=== PATIENT | male | born 1955 | race Caucasian/White ===

== ENCOUNTER → 2020-08-27 | Outpatient (CLI) | payer MEDICARE ==
[2020-08-27 08:45] VITALS: BP 126/86; PULSE 86; RESP 18; TEMP 98.4
--- NOTE | 2020-08-27 09:02 | P.PAINCN ---
History of Present Illness - Reason for Consult Consult date: 08/27/20 - Chief Complaint back pain - History of Present Illness Sergo is a 65-year-old gentleman who presents as a new patient consult. He had been seen [facility] previously for many years regarding his low back pain. He describes back pain across the low back mostly over the waistline and the top of the lumbar spine. He finds pain is an aching sensation is worse with standing and bending over. Pain is worse with extension of the lumbar spine. There are no shooting pains down the leg. There is no weakness noted in his legs. No numbness or tingling. He denies any bowel or bladder incontinence. He denies any significant upper back or neck pain. Has been treated with multiple radiofrequency ablations of the lumbar spine between L2 through L5 at [facility]. He reports that the radiofrequency ablation has offered him greater than 70-80% relief for almost 12 months at a time. He last had the procedure done in January 2020. Dr. Moraes's no longer there so they referred him over here to establish care. In the past she's had bilateral lumbar radiofrequency ablation at L2-3 L3 4 and L4-L5. He had the procedure done under sedation. Review of Systems: Denies any New chest pain, short of breath, Nausea/vomitting, abdominal pain, bowel or bladder incontinence, or any overt new neurologic symptoms in the upper or lower extremities outside of what is noted in the HPI Past Medical History Past Medical History: Hypertension Additional Past Medical History / Comment(s): full thickness grover legs with scars History of Any Multi-Drug Resistant Organisms: None Reported Additional Past Surgical History / Comment(s): rhizotomy lumbar spine. skin grafts cal legs Past Anesthesia/Blood Transfusion Reactions: No Reported Reaction Past Psychological History: No Psychological Hx Reported Smoking Status: Former smoker Past Alcohol Use History: Rare Additional Past Alcohol Use History / Comment(s): quit 2016 Past Drug Use History: None Reported - Past Family History Mother Family Medical History: Cancer Father Family Medical History: Cancer Medications and Allergies Home Medications Medication Instructions Recorded Confirmed Type Benazepril HCl 40 mg PO DAILY 08/26/20 08/27/20 History Ibuprofen [Motrin] 800 mg PO Q8H PRN 08/26/20 08/27/20 History Allergies Allergy/AdvReac Type Severity Reaction Status Date / Time No Known Allergies Allergy Verified 08/26/20 15:43 Physical Exam Vitals: Intake and Output 08/26/20 08/27/20 08/27/20 22:59 06:59 14:59 Other: Weight 90.718 kg General: Awake and alert oriented 3 no distress Respiratory exam: No audible wheezing no accessory muscle usage Cardiovascular exam: regular rate, palpable bilateral pulses, no lower extremity edema Abdominal exam: No distention nontender to palpation Cervical spine: Normal alignment, Spurling's negative, facet loading negative, [employer] strength is 5/5, issa negative Thoracic Spine: Alignment is midline. Forward flexed body position, increased thoracic kyphosis Lumbar spine: Loss of lumbar lordosis with atrophy of the paraspinal and gluteal muscles, normal alignment, tender to palpation over bilateral paraspinal muscles, facet loading is positive bilaterally. Straight leg raise is negative. Limited range of motion due to pain with flexion, extension and side bending. Sacroiliac joints: Nontender to palpation, OSMANY is negative, Gaenselon negative Neuro exam: Normal sensation in bilateral upper extremities, deep tendon reflexes are 2+ bilateral upper extremities. Normal sensation in bilateral lower extremities. Deep tendon reflexes are 2+ in lower extremities Psych exam: Cooperative, appropriate mood Results Results: According to the notes from [facility] dated 12/18/2019. MRI dated 03/19/2015 details a right foraminal disc protrusion L5-S1 mildly compressing the exiting L5 nerve root. There is mild multifactorial central stenosis at L4-L5. Spondylosis at multiple levels of the lumbar spine are noted. No high-grade stenosis noted on the report. There is an old compression fracture L1. Assessment and Plan Assessment: Lumbar spondylosis without myelopathy Plan: I discussed the findings with Sergo, I reviewed the records from [facility] which she has brought in. I placed those records in his paper chart. I have offered to take over his care of performing bilateral lumbar radiofrequency ablations from L2-L3, L3-L4, L4-L5. I've expect him that Medicare guidelines and recently change and we may not be able to do all 3 levels that one time. The options are to do one level at a time, and or do 2 levels bilaterally. We'll attempt to get authorization for bilateral 3 levels if possible. I've explained this to the patient in detail. No medications were dispensed today. The patient will give us a call when he is ready to have the procedure moving forward. I have spent 39 minutes on patient care today. The time was used to review the medical records including relevant urine studies and Prescription history (MAPs), review of the available imaging, evaluation and examination of the patient, coordination of care with the medical staff and if applicable referring physicians, as well as creation of the medical record. Maps were checked PQRS Measure Charge Sheet PQRS Narrative: Pain Intensity [Lower Back] 6 Scale Used Numeric (1 - 10) Hx Alcohol Use (MH) Yes Home Medications: Ambulatory Orders Benazepril HCl 40 mg PO DAILY 08/26/20 Ibuprofen [Motrin] 800 mg PO Q8H PRN 08/26/20
== END ==
LOC: PNWHC3 08:30
PROVIDERS: ATTEND Hospitalist
DX: M47.816 Spondylosis without myelopathy or radiculopathy, lumbar region (principal); I10 Essential (primary) hypertension; Z87.891 Personal history of nicotine dependence
CPT/HCPCS: 99202

== ENCOUNTER → 2020-10-15 | Outpatient (CLI) | payer MEDICARE ==
[2020-10-15 08:12] VITALS: BP 131/80; PULSE 78; RESP 18; TEMP 98.3
--- NOTE | 2020-10-15 08:22 | P.PN ---
Subjective Progress Note Date: 10/15/20 This is a follow-up visit for this 65 years old male with a chronic history of severe low back pain, came in today as he has multiple questions regarding his procedure , patient supposed to have RFA of the medial branch lumbar area and he is scheduled to have 3 level medial Branch laterally, he is concerned that he used to 4 leveles RFA medial branches bilaterally ( done previously at [facility] ) patient denies any fever or night sweats he denies any motor or sensory deficit, his pain excelling in nature and he had multiple interventions done past, and the only procedure helped his back pain was RFA of the medial branch lumbar area Objective - Vital Signs Vital signs: Vital Signs Temp 98.3 F 10/15/20 08:08 Pulse 78 10/15/20 08:08 Resp 18 10/15/20 08:08 BP 131/80 10/15/20 08:08 Pulse Ox 95 10/15/20 08:08 Intake & Output 10/14/20 10/15/20 10/15/20 18:59 06:59 18:59 Weight 90.71 kg - Exam Physical Examinations : -Constitutiona : Cooperative , not in acute distress . -HEENT : nech : supple , no Lymphadenopathy , normal thyroid size . : eyes : no ptosis , no icterus, no photophobia . - neurologic : Cranial nerve II to XII intact , no focal neurological deffecit . -psychatric : alert , oriented X 3 , appropriate affect , intact judgment and insight . -Lymphatic : no Lymphadenopathy . - musculoskeltal : Lumber spine moter stegnth lower extremities ,thigh and legs 5/5 Right side , 5/5 Left side deep tendon reflexes : normal Knee Jerk , normal ankle Jerk lumber facet Loading Test =positive Right , positive Left Range of motion of the lumbar spine Flexion 30 degrees, extension 10 degrees strait leg raising test = negative Fabere test= negative . Sever tenderness over the Sacroiliac joint on the Right , and Left sides Multiple trigger point in the lumbar paraspinal muscles. MRI dated 03/19/2015 details a right foraminal disc protrusion L5-S1 mildly compressing the exiting L5 nerve root. There is mild multifactorial central stenosis at L4-L5. Spondylosis at multiple levels of the lumbar spine are noted. No high-grade stenosis noted on the report. There is an old compression fracture L1. Assessment and Plan Plan: Assessment and plan=1-lumbar spondylosis with lumbar facet arthropathy. 2-lumbar degenerative disc disease. 3-compression fracture lumbar spine (old ) he could benefit from repeate RFA medial branch lumbar area at L3, L4 , L5 bilaterally (insurance will not approve to do 4 levels bilaterally) Time with Patient: Less than 30
== END ==
LOC: PNWHC3 07:42
PROVIDERS: ATTEND Specialist
DX: M47.816 Spondylosis without myelopathy or radiculopathy, lumbar region (principal); M51.36 Other intervertebral disc degeneration, lumbar region; Z87.81 Personal history of (healed) traumatic fracture
CPT/HCPCS: 99211

== ENCOUNTER 2020-12-19 05:58 | Day surgery (SDC) | payer MEDICARE ==
[2020-12-16 10:30] VITALS: BMI 29.5
[~2020-12-19 05:58] MED LIST: LACTATED RINGERS 1,000 ML IV SCH
[2020-12-19 06:42] VITALS: TEMP 97.7
[2020-12-19] MEDS ORDERED: ROPIVACAINE 5MG/ML 20ML VIAL ONE (07:02)
[2020-12-19] MEDS ORDERED: methylPREDNISolone ACETATE 40 MG/ML 1 ML VIAL ONE (07:02)
[2020-12-19] MEDS ORDERED: fentaNYL (PF) 50 MCG/ML 2 ML AMP ONE (07:03)
[2020-12-19] MEDS ORDERED: MIDAZOLAM 2 MG/2 ML VIAL ONE (07:03)
[2020-12-19] MEDS ORDERED: LACTATED RINGERS 1,000 ML IV ONE ×2 (07:29)
--- NOTE | 2020-12-19 07:43 | P.PCN ---
Date of Procedure: 12/19/20 Procedure(s) Performed: PREOPERATIVE DIAGNOSIS: 1-Lumbar Spondylosis with Facet Arthropathy without myelopathy. 2- Lumber degenerative disc disease. POSTOPERATIVE DIAGNOSIS: 1- Lumbar Spondylosis with Facet Arthropathy without myelopathy. 2- Lumber degenerative disc disease. PROCEDURES : Bilateral Radiofrequency thermocoagulation, L3 , L4 , and L5 medial branch, with fluoroscopic guidance (fluoroscopy images available in the radiology department) ( to denervate the facet joint at L4-5 ,and L5-S1 levels ). ANESTHESIA: Monitered Anesthesia care, as per anesthesia department. EBL: Minimal PROCEDURE INDICATION: The patient with low back pain secondary to lumbar facet arthropathy who had more than 50% relief of her pain with previous diagnostic lumbar medial branch block with bupivacaine. PROCEDURE DESCRIPTION / TECHNIQUE: The patient was seen and identified in the preoperative area. Risks, benefits, complications, including but not limited to risk of infection ,bleeding , allergic reactions to the medications and no complete pain releife , and alternatives were discussed with the patient, the patient agreed to proceed with the procedure and signed the consent. IV was started. Vital signs remained stable throughout the procedure. Patient was taken to the OR and time out was completed. The patient was placed in the prone position on the procedure table. The lumber area was prepped and draped in the usual sterile fashion. . Vital signs were closely monitored during the procedure .IV sedation was used during the procedure to decrease patients anxiety. Using AP and then oblique fluoroscopy, the ``eye of the Viktor dog corresponding to the connection between the superior and transverse articular processes of right L3, L4, and L5 were identified, marked, and localized with 1% lidocaine. Subsequently, a 18 [id number] radiofrequency cannula with a 10- mm active tip was advanced guided by fluoroscopy to each of the``eyes of the Viktor dog at right L3, L4, and L5. Each site then underwent sensory testing at 50 Hz and 0 to 1 volt and motor testing at 2.5 Hz and 0 to 3 volt with local stimulation, but no radicular symptoms down the legs. Thereafter each sites underwent radiofrequency thermocoagulation at 80 degrees celsius for 90 seconds after injecting 0.5 ml of PF Ropivacaine 1ml, then after the thermocoagulation done , 1 ml of the block solution containing Depo-Medrol 20 mg and 3 ml of Ropivacaine 0.5% was injected at the right L3 , L4 , and L5 , levels after negative aspiration of CSF and blood and with no paresthesias. Cannulas were retracted while injecting lidocaine 1% until the needle is out. The same procedure was repeated at the level of Left L3, L4, and L5 levels. At the end of the procedure, the skin was cleansed and bandages were applied. COMPLICATIONS: No acute complications. DISPOSITION / PLANS: The patient was placed in a supine position and transferred to the recovery area in a stable condition for observation and was discharged from the recovery room after meeting discharge criteria. Home discharge instructions given to the patient by the staff. The patient was reexamined prior to discharge. The patient will schedule a follow up in the clinic in 2-4 weeks.
[2020-12-19 07:47] VITALS: RESP 16
[2020-12-19 08:01] VITALS: BP 139/88; PULSE 82
[2020-12-19] MEDS ORDERED: IV FLUID CONTINUATION 650 ML IV ONE (08:15)
--- NOTE | 2020-12-19 08:58 | FL ---
Fluoroscopy HISTORY: Pain 18 seconds fluoroscopy time supplied to the referring clinician. 7 intraoperative C-arm images docum ent the procedure. See dictated report from anesthesia.
== END 2020-12-19 08:19 | disposition home or self-care (01) ==
LOC: ORPAIN 05:58
PROVIDERS: ATTEND Specialist
DX: M47.816 Spondylosis without myelopathy or radiculopathy, lumbar region (principal); I10 Essential (primary) hypertension; K21.9 Gastro-esophageal reflux disease without esophagitis
CPT/HCPCS: 64635; 64636; J2250; J1030; J3010; J2795

== ENCOUNTER → 2021-01-19 | Outpatient (CLI) | payer MEDICARE ==
--- NOTE | 2021-01-19 08:51 | P.PAINPG ---
Subjective Progress Note Date: 01/19/21 Principal diagnosis: Lumbar back pain Mr. Garcia is a 65-year-old pleasant male came to the [facility] pain clinic for postprocedure evaluation. Patient has ongoing pain for many years. Patient describes pain is aching, throbbing, constant type of pain. Pain not radiating to her lower extremities.. Patient rated pain levels are 3 out of 10 in severity. Patient is doing overall well with the bilateral radiofrequency ablation L4-L5, and L5-S1. After the procedure he cut down his Motrin drastically. And he is able to sleep better,and able to perform his activities without difficulties. Activities making pain worse. Medications, resting, interventional procedures helping in relieving patient's pain. Patient pain some days better than others. Denied any bowel or bladder problems at this time. Patient is fo not using any walking support. Patient denies any suicidal or homicidal ideations intent or plan. Patient denies any auditory or visual hallucinations. Patient denied any red flag symptoms related to pain. Objective - Exam General: Well-developed, well-nourished, no acute distress HEENT: Normocephalic, and atraumatic Neck: Supple, no neck swelling Psychiatric: Appropriate mood, and affect [employer]: No noticeable focal neurological deficits Musculoskeletal: Upper extremity: Normal strength, and range of motion. Sensation grossly intact Lower extremity: Normal strength, and normal range of motion Lumbar spine: Paravertebral tenderness: positive Lumbar facet load test : positive Strait leg raising test: Not done Sacroiliac joint tenderness: Negative - Constitutional Constitutional Comment(s): 13 point review of symptoms negative except as mentioned in the history of present illness Assessment and Plan Assessment: Lumbar spondylosis without myelopathy Chronic low back pain Myofascial pain syndrome, and chronic pain syndrome Plan: #1 psychological risk tools were reviewed. Diagnoses, prognosis, and multiple treatment options including but not limited to physical therapy, interventional therapy, adjunct medication therapy, complementary alternative medicine options, narcotic medication, and surgical options were discussed with the patient. And all questions were answered to the patient's satisfaction. #2 treatment plan agreement : Patient was thoroughly discussed regarding the treatment options, alternatives, and importance of exercises as tolerated. Patient clearly understood. #3 Patient was counseled on importance of regular exercise. Including olivia chi, aerobic exercises as tolerated. Which helps for chronic pain, and overall well- being. Patient also counseled regarding importance of weight control role in chronic pain, and overall other health issues. By altering diet habits, minimizing sugar intake, & processed foods helps in minimizing Inflammation. #4 investigations: MAPS- reviewed , urine drug test- not done #5 diagnostic tests: None #6 consultation : None # 7 interventional procedures: None at this time #8 medications None from the pain clinic #9 disposition: scheduled to follow up with pain clinic as needed in future. I have spent 15 minutes with this patient. Including but not limited to: [id number] time, on physical examination, electronic medical record review, counseling, and documentation. PQRS Measure Charge Sheet Measure #130: Documentation of Current Meds in Medical Chart: Patient's medications documented in chart Measure #226: Tobacco Use: Screen & Cessation Intervention: Pt not a tobacco user Measure #111: Pneumonia Vaccination: Pneumococcal vaccine NOT administered or previously given Measure #47: Advance Care Plan: Advance care planning discussed & documented, pt chose/unable to give Measure #412: Opioid Treatment Agreement: No documentation of signed opioid treatment agreement Measure #408: Opioid Therapy Follow-up Evaluation: Patient had NO f/u eval minimum every 3 months during opioid therapy Measure #317: Preventitive Care & Scrn High Bld Press & F/U: Pre-hypertensive or hypertensive BP documented, pt will f/u with PCP Measure #128: Body Mass Index (BMI) Screening & Follow-up: BMI documented within normal parameters Measure #131: Pain Assessment & Follow-up: Pain positive & plan documented Measure #431: Unhealthy Alcohol Use Preventative Care & Scrn: Patient not identified as an unhealthy alcohol user PQRS Narrative: Pain Intensity [Lower Back] 3 Hx Alcohol Use (MH) Yes Home Medications: Ambulatory Orders Benazepril HCl 40 mg PO DAILY 08/26/20 Ibuprofen [Motrin] 800 mg PO Q8H PRN 08/26/20 Calcium/Magnesium/Zinc [Byuwkej-Tiusvrbno-Trga Tablet] 1 each PO DAILY 12/16/20 Milk Thistle 1,000 mg PO DAILY 12/16/20 Multivit-Min/Folic/Vit K/Lycop [Men's Multivitamin Tablet] 1 each PO DAILY 12/16/20 Omeprazole 20 mg PO DAILY 12/16/20 Vitamin B Complex 1 each PO DAILY 12/16/20 Controlled Substance Measures - Controlled Substance Measures Is patient prescribed a controlled substance at discharge?: No
[2021-01-19 08:59] VITALS: BP 148/95; PULSE 89; RESP 16; TEMP 97.6
== END | disposition home or self-care (01) ==
LOC: PNWHC3 08:29
DX: M47.816 Spondylosis without myelopathy or radiculopathy, lumbar region (principal)
CPT/HCPCS: 80307; 99211

== ENCOUNTER → 2021-12-31 | Outpatient (CLI) | payer MEDICARE ==
[2021-12-31 10:00] VITALS: BP 131/92; PULSE 93; RESP 18
--- NOTE | 2021-12-31 13:34 | P.PAINPG ---
PQRS Measure Charge Sheet Comment: A 66 yr old male with a history of severe and chronic low back pain secondary to lumbar degenerative disc diseases and lumbar spondylosis with facet arthropathy without myelopathy presents today for evaluation s/p BL RFA L3-L5. Pt states he experienced 95% pain relief x 11 mo s/p procedure. Pain level is c urrently at 7/10 in intensity, constant, localized in lower lumbar spine, dull/ achy in character without radiation of pain. Pain is provoked by chiropractic treatments and standing/ walking for periods of 15 min or more. Pain is alleviated with PT in 2018, heat, ice, medications, injections, repositioning and rest. Interventional pain procedures completed include BL RFA L3-5 Patient is currently on Ibuprofen, Lidoderm Patient denies any side effects of the medication(s), denies excessive drowsiness or sleepiness, denies suicidal ideation and reports that the current pain medication is helping to control the pain and improve activities of daily living. Patient denies any motor or sensory deficits. Patient denies any fever or night sweats, denies any change in the bowel movements or urination. Physical Examination: -Constitutional: Cooperative. Not in acute distress . - Neurologic: Cranial nerve II to XII intact. No focal neurological deficits. - Psychatric: Alert & oriented x 3. Matching mood & appropriate affect. Judgment and insight intact. - Musculoskeletal: Cervical spine: Muscle bulk/ tone/ strength in the bilateral upper extremities normal Vertebral body tenderness to palpation over Spurling test positive Distraction test positive Facet loading test positive Thoracic spine Muscle bulk / tone/ strength in the bilateral paraspinal muscles normal Vertebral body tender to palpation over Facet loading test positive Lumbar spine: Motor bulk/ tone/ strength lower extremities , thigh and legs : 5/5 Deep tendon reflexes : Normal Knee Jerk. Normal Ankle Jerk . Vertebral body tenderness to palpation over Lumbar Facet Loading Test positive w jump reflex over BL L4-L5, L5-S1 Straight Leg Raise: positive at 30 degrees right side/ left side Gaenslen's Test positive Sacral spine : Severe tenderness over the Sacroiliac joint: right side / left side Range of motion: Flexion of the lumbar spine <60 degrees Range of motion: Extension of the lumbar spine <20 degrees Gaenslen's Test positive Paulo's Test positive Mario test: positive right side / left side Thigh Thrust Test Sacral Thrust Test Assessment and plan: Chronic low back pain secondary to lumbar degenerative disc disease , lumbar spondylosis with facet arthropathy without myelopathy Recommendation of BL RFA L4-L5, L5-S1. Pt exhibited substantial pain relief w prior RFA. Risks, benefits of procedure discussed and pt verbalized understanding. Admits to anticoagulant use or medical history of diabetes. Protocol for discontinuation/ continuation of medications ena procedure discussed. All patient questions answered MAPS reviewed and it was appropriate. I have spent less than 30 minutes on patient care today. Dr Beasley was available by phone for the evaluation of this patient. The time was used to review the medical records including relevant urine studies and Prescription history (MAPs), review of the available imaging, evaluation and examination of the patient, coordination of care with the medical staff and if applicable referring physicians, as well as creation of the medical record PQRS Narrative: Hx Alcohol Use (MH) Yes Home Medications: Ambulatory Orders Benazepril HCl 40 mg PO DAILY 08/26/20 Ibuprofen [Motrin] 800 mg PO Q8H PRN 08/26/20 Calcium/Magnesium/Zinc [Ggkpbfw-Wvuzdjhsr-Alid Tablet] 1 each PO DAILY 12/16/20 Milk Thistle 1,000 mg PO DAILY 12/16/20 Multivit-Min/Folic/Vit K/Lycop [Men's Multivitamin Tablet] 1 each PO DAILY 12/16/20 Omeprazole 20 mg PO DAILY 12/16/20 Vitamin B Complex 1 each PO DAILY 12/16/20 Controlled Substance Measures - Controlled Substance Measures Is patient prescribed a controlled substance at discharge?: No
== END | disposition home or self-care (01) ==
LOC: PNWHC3 08:50
PROVIDERS: ATTEND Specialist
DX: M47.896 Other spondylosis, lumbar region (principal); M51.36 Other intervertebral disc degeneration, lumbar region
CPT/HCPCS: 99211

== ENCOUNTER 2022-02-12 05:54 | Day surgery (SDC) | payer MEDICARE ==
[2022-02-12] MEDS ORDERED: LIDOCAINE 1% (10MG/ML) FOR IV START INTRADERMA PRN (06:03)
[2022-02-12] MEDS ORDERED: LACTATED RINGERS 1,000 ML IV SCH (06:03)
[2022-02-12 06:21] VITALS: RESP 16; TEMP 97.4
[2022-02-12] MEDS ORDERED: fentaNYL (PF) 50 MCG/ML 2 ML AMP ONE (06:59)
[2022-02-12] MEDS ORDERED: methylPREDNISolone ACETATE 40 MG/ML 1 ML VIAL ONE (06:59)
[2022-02-12] MEDS ORDERED: ROPIVACAINE 5 MG/ML 20 ML AMPULE ONE (06:59)
[2022-02-12] MEDS ORDERED: MIDAZOLAM 2 MG/2 ML VIAL ONE (06:59)
--- NOTE | 2022-02-12 07:28 | P.PCN ---
Date of Procedure: 02/12/22 Procedure(s) Performed: PREOPERATIVE DIAGNOSIS: 1-Lumbar Spondylosis with Facet Arthropathy without myelopathy. 2- Lumber degenerative disc disease. POSTOPERATIVE DIAGNOSIS: 1- Lumbar Spondylosis with Facet Arthropathy without myelopathy. 2- Lumber degenerative disc disease. PROCEDURES : Bilateral Radiofrequency thermocoagulation, L3 , L4 , and L5 medial branch, with fluoroscopic guidance (fluoroscopy images available in the radiology department) ( to denervate the facet joint at Bilateral L4-5 ,and L5-S1 levels ). ANESTHESIA: Monitered Anesthesia care, as per anesthesia department. EBL: Minimal PROCEDURE INDICATION: The patient with low back pain secondary to lumbar facet arthropathy who had more than 80% relief of her pain with previous diagnostic lumbar medial branch block with a cane and more than 90% relief after RFA done last year, and patient here today to repeat the RFA of the medial branch lumbar area at the levels mentioned above. PROCEDURE DESCRIPTION / TECHNIQUE: The patient was seen and identified in the preoperative area. Risks, benefits, complications, including but not limited to risk of infection ,bleeding , allergic reactions to the medications and no complete pain releife , and alternatives were discussed with the patient, the patient agreed to proceed with the procedure and signed the consent. IV was started. Vital signs remained stable throughout the procedure. Patient was taken to the OR and time out was completed. The patient was placed in the prone position on the procedure table. The lumber area was prepped and draped in the usual sterile fashion. . Vital signs were closely monitored during the procedure .IV sedation was used during the procedure to decrease patients anxiety. Using AP and then oblique fluoroscopy, the ``eye of the Viktor dog corresponding to the connection between the superior and transverse articular processes of right L3, L4, and L5 were identified, marked, and localized with 1% lidocaine. Subsequently, a 18 -kd radiofrequency cannula with a 10- mm active tip was advanced guided by fluoroscopy to each of the``eyes of the Viktor dog at right L3, L4, and L5. Each site then underwent sensory testing at 50 Hz and 0 to 1 volt and motor testing at 2.5 Hz and 0 to 3 volt with local stimulation, but no radicular symptoms down the legs. Thereafter each sites underwent radiofrequency thermocoagulation at 80 degrees celsius for 90 seconds after injecting 0.5 ml of PF Ropivacaine 1ml, then after the thermocoagulation done , 1 ml of the block solution containing Depo-Medrol 20 mg and 3 ml of Ropivacaine 0.5% was injected at the right L3 , L4 , and L5 , levels after negative aspiration of CSF and blood and with no paresthesias. Cannulas were retracted while injecting lidocaine 1% until the needle is out. The same procedure was repeated at the level of Left L3, L4, and L5 levels. At the end of the procedure, the skin was cleansed and bandages were applied. COMPLICATIONS: No acute complications. DISPOSITION / PLANS: The patient was placed in a supine position and transferred to the recovery area in a stable condition for observation and was discharged from the recovery room after meeting discharge criteria. Home discharge instructions given to the patient by the staff. The patient was reexamined prior to discharge. The patient will schedule a follow up in the clinic in 2-4 weeks.
[2022-02-12] MEDS ORDERED: LACTATED RINGERS 1,000 ML IV ONE (07:32)
[2022-02-12] MEDS ORDERED: IV FLUID CONTINUATION 600 ML IV ONE (07:32)
[2022-02-12 07:56] VITALS: BP 142/87; PULSE 77
--- NOTE | 2022-02-12 08:05 | FL ---
Intraoperative/procedural fluoroscopic services were provided. Total fluoroscopy time is 34 seconds w ith a total of 6 submitted images to PACS. Please see the operative/procedural note for further detai ls.
== END 2022-02-12 08:11 | disposition home or self-care (01) ==
LOC: ORPAIN 05:54
PROVIDERS: ATTEND Specialist
DX: M47.816 Spondylosis without myelopathy or radiculopathy, lumbar region (principal); M51.36 Other intervertebral disc degeneration, lumbar region; I10 Essential (primary) hypertension; G47.33 Obstructive sleep apnea (adult) (pediatric); Z87.891 Personal history of nicotine dependence; K21.9 Gastro-esophageal reflux disease without esophagitis
CPT/HCPCS: 64635; 64636; J2250; J1030; J3010; J2795

== ENCOUNTER → 2022-02-25 | Outpatient (CLI) | payer MEDICARE ==
--- NOTE | 2022-02-25 08:18 | P.PAINPG ---
PQRS Measure Charge Sheet Comment: A 66 yr old male with a history of severe and chronic low back pain secondary to lumbar degenerative disc diseases and lumbar spondylosis with facet arthropathy without myelopathy presents today for evaluation s/p BL RFA L3-L5. Pt states he experienced 100% pain relief s/p procedure. Pain level is currently at 0/10 in intensity. Pain is alleviated with injections. Interventional pain procedures completed include BL RFA L3-L5 Patient is currently on Patient denies any side effects of the medication(s), denies excessive drowsiness or sleepiness, denies suicidal ideation and reports that the current pain medication is helping to control the pain and improve activities of daily living. Patient denies any motor or sensory deficits. Patient denies any fever or night sweats, denies any change in the bowel movements or urination. Physical Examination: -Constitutional: Cooperative. Not in acute distress . - Neurologic: Cranial nerve II to XII intact. No focal neurological deficits. - Psychatric: Alert & oriented x 3. Matching mood & appropriate affect. Judgment and insight intact. - Musculoskeletal: Cervical spine: Muscle bulk/ tone/ strength in the bilateral upper extremities normal Vertebral body tenderness to palpation over Spurling test positive Distraction test positive Facet loading test positive Thoracic spine Muscle bulk / tone/ strength in the bilateral paraspinal muscles normal Vertebral body tender to palpation over Facet loading test positive Lumbar spine: Motor bulk/ tone/ strength lower extremities , thigh and legs : 5/5 Deep tendon reflexes : Normal Knee Jerk. Normal Ankle Jerk . Vertebral body tenderness to palpation over Lumbar Facet Loading Test positive Straight Leg Raise: positive at 30 degrees right side/ left side Gaenslen's Test positive Sacral spine : Severe tenderness over the Sacroiliac joint: right side / left side Range of motion: Flexion of the lumbar spine <60 degrees Range of motion: Extension of the lumbar spine <20 degrees Gaenslen's Test positive Paulo's Test positive Mario test: positive right side / left side Thigh Thrust Test Sacral Thrust Test Assessment and plan: Chronic low back pain secondary to lumbar degenerative disc disease , lumbar spondylosis with facet arthropathy without myelopathy Patient exhibited optimal and superior pain relief s/p procedure. If he experiences pain with provocation, he may follow prior identified home pain modifying remedies. He may return to our clinic on an as-needed basis. Risks, benefits of procedure discussed and pt verbalized understanding. Denies anticoagulant use or medical history of diabetes. All patient questions answered I have spent less than 30 minutes on patient care today. Dr Beasley was available by phone for the evaluation of this patient. The time was used to review the medical records including relevant urine studies and Prescription history (MAPs), review of the available imaging, evaluation and examination of the patient, coordination of care with the medical staff and if applicable referring physicians, as well as creation of the medical record PQRS Narrative: Hx Alcohol Use (MH) Yes Home Medications: Ambulatory Orders Benazepril HCl 40 mg PO DAILY 08/26/20 Ibuprofen [Motrin] 800 mg PO Q8H PRN 08/26/20 Calcium/Magnesium/Zinc [Eywkoer-Quvhddmqw-Xpbc Tablet] 1 each PO DAILY 12/16/20 Milk Thistle 1,000 mg PO DAILY 12/16/20 Multivit-Min/Folic/Vit K/Lycop [Men's Multivitamin Tablet] 1 each PO DAILY 12/16/20 Omeprazole 20 mg PO DAILY 12/16/20 Vitamin B Complex 1 each PO DAILY 12/16/20 Controlled Substance Measures - Controlled Substance Measures Is patient prescribed a controlled substance at discharge?: No
[2022-02-25 08:21] VITALS: BP 133/88; PULSE 83; RESP 18; TEMP 98.6
== END ==
LOC: PNWHC3 08:03
PROVIDERS: ATTEND Specialist
DX: M47.816 Spondylosis without myelopathy or radiculopathy, lumbar region (principal); M51.36 Other intervertebral disc degeneration, lumbar region; G89.29 Other chronic pain
CPT/HCPCS: 99211

== ENCOUNTER → 2022-11-29 | Outpatient (CLI) | payer MEDICARE ==
[2022-11-29 08:10] VITALS: BP 128/78; PULSE 80; RESP 16; TEMP 98.2
--- NOTE | 2022-11-29 08:19 | P.PN ---
Subjective Progress Note Date: 11/29/22 PQRS Measure Charge Sheet Comment: A 66 yr old male with a history of severe and chronic low back pain secondary to lumbar degenerative disc diseases and lumbar spondylosis with facet arthropathy without myelopathy presents today for evaluation last year January 2022 we have done RFA of the medial branch lumbar area at L4 5 and L5-S1. Pt states he experienced 95% pain relief x 10 mo s/p procedure. Pain level is currently at 7/10 in intensity, constant, localized in lower lumbar spine, dull/ achy in character without radiation of pain. Pain is provoked by chiropractic treatments and standing/ walking for periods of 15 min or more. Pain is alleviated with PT in 2018, heat, ice, medications, injections, repositioning and rest. Interventional pain procedures completed include BL RFA L3-5 Patient is currently on Ibuprofen, Lidoderm Patient denies any side effects of the medication(s), denies excessive drowsiness or sleepiness, denies suicidal ideation and reports that the current pain medication is helping to control the pain and improve activities of daily living. Patient denies any motor or sensory deficits. Patient denies any fever or night sweats, denies any change in the bowel movements or urination. Physical Examination: -Constitutional: Cooperative. Not in acute distress . - Neurologic: Cranial nerve II to XII intact. No focal neurological deficits. - Psychatric: Alert & oriented x 3. Matching mood & appropriate affect. Judgment and insight intact. - Musculoskeletal: Cervical spine: Muscle bulk/ tone/ strength in the bilateral upper extremities normal Vertebral body tenderness to palpation over Spurling test positive Distraction test positive Facet loading test positive Thoracic spine Muscle bulk / tone/ strength in the bilateral paraspinal muscles normal Vertebral body tender to palpation over Facet loading test positive Lumbar spine: Motor bulk/ tone/ strength lower extremities , thigh and legs : 5/5 Deep tendon reflexes : Normal Knee Jerk. Normal Ankle Jerk . Vertebral body tenderness to palpation over Lumbar Facet Loading Test positive w jump reflex over BL L4-L5, L5-S1 Straight Leg Raise: positive at 30 degrees right side/ left side Gaenslen's Test positive Sacral spine : Severe tenderness over the Sacroiliac joint: right side / left side Range of motion: Flexion of the lumbar spine <60 degrees Range of motion: Extension of the lumbar spine <20 degrees Gaenslen's Test positive Paulo's Test positive Mario test: positive right side / left side Thigh Thrust Test Sacral Thrust Test Assessment and plan: Chronic low back pain secondary to lumbar degenerative disc disease , lumbar spondylosis with facet arthropathy without myelopathy Recommendation of repeat BL RFA L4-L5, L5-S1. Pt exhibited substantial pain relief w prior RFA. Risks, benefits of procedure discussed and pt verbalized understanding. Admits to anticoagulant use or medical history of diabetes. Protocol for discontinuation/ continuation of medications ena procedure discussed. All patient questions answered MAPS reviewed and it was appropriate. OSWESTRY score is 19 PQRS Narrative: Hx Alcohol Use (MH) Yes Home Medications: Ambulatory Orders Benazepril HCl 40 mg PO DAILY 08/26/20 Ibuprofen [Motrin] 800 mg PO Q8H PRN 08/26/20 Calcium/Magnesium/Zinc [Mcmmdqz-Rnckvxato-Ksmk Tablet] 1 each PO DAILY 12/16/20 Milk Thistle 1,000 mg PO DAILY 12/16/20 Multivit-Min/Folic/Vit K/Lycop [Men's Multivitamin Tablet] 1 each PO DAILY 12/16/20 Omeprazole 20 mg PO DAILY 12/16/20 Vitamin B Complex 1 each PO DAILY 12/16/20 Controlled Substance Measures - Controlled Substance Measures Is patient prescribed a controlled substance at discharge?: No Objective - Vital Signs Vital signs: Vital Signs Temp 98.2 F 11/29/22 07:55 Pulse 80 11/29/22 07:55 Resp 16 11/29/22 07:55 BP 128/78 11/29/22 07:55 Pulse Ox 94 L 11/29/22 07:55 FiO2 Intake & Output 11/28/22 11/29/22 11/29/22 18:59 06:59 18:59 Weight 89.811 kg
== END ==
LOC: PNWHC3 07:36
PROVIDERS: ATTEND Specialist
DX: M51.37 Other intervertebral disc degeneration, lumbosacral region (principal); M47.817 Spondylosis without myelopathy or radiculopathy, lumbosacral region; M51.9 Unspecified thoracic, thoracolumbar and lumbosacral intervertebral disc disorder; G89.29 Other chronic pain
CPT/HCPCS: 99211

== ENCOUNTER 2023-02-18 06:48 | Day surgery (SDC) | payer MEDICARE ==
[2023-02-16 15:52] VITALS: BMI 28.0
[2023-02-18 07:34] VITALS: TEMP 97.9
[2023-02-18] MEDS ORDERED: PROPOFOL 10 MG/ML 20 ML VIAL IV ONE (07:54)
[2023-02-18] MEDS ORDERED: IV FLUID CONTINUATION 1,000 ML IV ONE (08:17)
--- NOTE | 2023-02-18 08:22 | P.PCN ---
Date of Procedure: 02/18/23 Procedure(s) Performed: BRIEF HISTORY: Patient is a 67-year-old pleasant 8 male scheduled for an elective colonoscopy as a part of screening for colon cancer and family history of colon cancer. His as was diagnosed with colon cancer at age 50. PROCEDURE PERFORMED: Colonoscopy snare polypectomy. PREOPERATIVE DIAGNOSIS: Screening for colon cancer/family history of colon cancer. IV sedation per Anesthesia. PROCEDURE: After informed consent was obtained, the patient, was brought into the endoscopy unit. IV sedation was administered by Anesthesia under continuous monitoring. Digital rectal examination was normal. Initially the Olympus CF-160 flexible video colonoscope was then inserted in the rectum, gradually advanced into the cecum without any difficulty. Careful examination was performed as the scope was gradually being withdrawn. Ileocecal valve and the appendiceal orifice were visualized and appeared normal. Prep was excellent. On the ileocecal valve there was a 5-6 mm sessile polyp that was removed by snare polypectomy. Mucosa of the cecum, ascending colon, transverse colon, descending colon, sigmoid colon, and rectum appeared normal. Retroflexion was performed in the rectum and no lesions were seen. The patient tolerated the procedure well. IMPRESSION: 5-6 mm sessile polyp in the ileocecal valve status post snare polypectomy Scattered sigmoid diverticulosis RECOMMENDATIONS: Findings of this examination were discussed with the patient as well as his family. He was advised to follow with the biopsy results and have a repeat colonoscopy in 5 years because of the family history of colon cancer..
[2023-02-18 08:42] VITALS: BP 113/74; PULSE 78; RESP 18
== END 2023-02-18 09:03 | disposition home or self-care (01) ==
LOC: ORWHC2ENDO 06:48
PROVIDERS: ATTEND Internal Medicine Gastroenterology
DX: Z12.11 Encounter for screening for malignant neoplasm of colon (principal); Z80.0 Family history of malignant neoplasm of digestive organs; I10 Essential (primary) hypertension; K21.9 Gastro-esophageal reflux disease without esophagitis; Z85.038 Personal history of other malignant neoplasm of large intestine; Z79.899 Other long term (current) drug therapy
CPT/HCPCS: 88305; 45385; J2704

== ENCOUNTER → 2024-01-25 | Outpatient (CLI) | payer MEDICARE ==
[2024-01-25 09:45] VITALS: BP 130/86; PULSE 86; RESP 16; TEMP 97.3
--- NOTE | 2024-01-25 13:14 | P.PAINPG ---
PQRS Measure Charge Sheet Comment: A 66 yr old male with a history of severe and chronic low back pain secondary to lumbar degenerative disc diseases and lumbar spondylosis with facet arthropathy without myelopathy presents today for evaluation. Pt underwent a BL RFA L4-L5/ L5-S1 in Dec 2022 and states he experienced 90% pain relief x 10 mo s/p procedure. Pain level is currently at 7 /10 in intensity, constant, predominantly axial, localized in lower lumbar spine, dull in character without radiation of pain. Pain is provoked by chiropractic treatments and standing/ walking for periods > 15 min. Pain is alleviated with PT in 2018, physician guided home stretches daily since Dec 2022, heat, ice, medications, injections, repositioning and rest. Interventional pain procedures completed include BL RFA L3-L5 x2 (Dec 2022) Patient is currently on Ibuprofen, Lidoderm Patient denies any side effects of the medication(s), denies excessive drowsiness or sleepiness, denies suicidal ideation and reports that the current pain medication is helping to control the pain and improve activities of daily living. Patient denies any motor or sensory deficits. Patient denies any fever or night sweats, denies any change in the bowel movements or urination. Physical Examination: -Constitutional: Cooperative. Not in acute distress . - Neurologic: Cranial nerve II to XII intact. No focal neurological deficits. - Psychatric: Alert & oriented x 3. Matching mood & appropriate affect. Judgment and insight intact. - Musculoskeletal: Cervical spine: Muscle bulk/ tone/ strength in the bilateral upper extremities normal Vertebral body tenderness to palpation over Spurling test positive Distraction test positive Facet loading test positive Thoracic spine Muscle bulk / tone/ strength in the bilateral paraspinal muscles normal Vertebral body tender to palpation over Facet loading test positive Lumbar spine: Motor bulk/ tone/ strength lower extremities , thigh and legs : 5/5 Deep tendon reflexes : Normal Knee Jerk. Normal Ankle Jerk . Vertebral body tenderness to palpation over Lumbar Facet Loading Test positive w jump reflex over BL L4-L5, L5-S1 Straight Leg Raise: positive at 30 degrees right side/ left side Gaenslen's Test positive Sacral spine : Severe tenderness over the Sacroiliac joint: right side / left side Range of motion: Flexion of the lumbar spine <60 degrees Range of motion: Extension of the lumbar spine <20 degrees Gaenslen's Test positive Paulo's Test positive Mario test: positive right side / left side Thigh Thrust Test Sacral Thrust Test Assessment and plan: Chronic low back pain secondary to lumbar degenerative disc disease , lumbar spondylosis with facet arthropathy without myelopathy Recommendation of repeat BL RFA L4-L5, L5-S1 #3. Pt exhibited substantial pain relief w prior RFA. Risks, benefits of procedure discussed and pt verbalized understanding. Admits to anticoagulant use or medical history of d iabetes. Protocol for discontinuation/ continuation of medications ena procedure discussed. Minimal anesthesia including Fentanyl and Versed if clinically indicated. All patient questions answered . MAPS reviewed and it was appropriate. PQRS Narrative: Hx Alcohol Use (MH) Yes Home Medications: Ambulatory Orders Benazepril HCl 40 mg PO DAILY 08/26/20 Ibuprofen [Motrin] 800 mg PO Q8H PRN 08/26/20 Calcium/Magnesium/Zinc [Hcnjbdc-Afertcjhn-Qjie Tablet] 1 each PO DAILY 12/16/20 Milk Thistle 1,000 mg PO DAILY 12/16/20 Multivit-Min/Folic/Vit K/Lycop [Men's Multivitamin Tablet] 1 each PO DAILY 12/16/20 Omeprazole 20 mg PO DAILY 12/16/20 Vitamin B Complex 1 each PO DAILY 12/16/20 amLODIPine [Norvasc] 10 mg PO HS 02/16/23 Controlled Substance Measures - Controlled Substance Measures Is patient prescribed a controlled substance at discharge?: No
== END | disposition home or self-care (01) ==
LOC: PNWHC3 08:41
PROVIDERS: ATTEND Specialist
DX: M54.16 Radiculopathy, lumbar region
CPT/HCPCS: 99211

== ENCOUNTER 2024-02-16 05:57 | Day surgery (SDC) | payer MEDICARE ==
[2024-02-15 10:55] VITALS: BMI 28.8
[2024-02-16 06:47] VITALS: TEMP 98.4
[2024-02-16] MEDS: IV FLUID CONTINUATION 1,000 ML IV ONE ×2 (06:53→08:05)
[2024-02-16] MEDS ORDERED: LACTATED RINGERS 1,000 ML IV SCH (06:54)
[2024-02-16] MEDS: LACTATED RINGERS 1,000 ML BAG IV STA (06:55)
[2024-02-16] MEDS ORDERED: MIDAZOLAM 2 MG/2 ML VIAL ONE (07:33)
[2024-02-16] MEDS ORDERED: ROPIVACAINE 5MG/ML 20ML VIAL ONE (07:33)
[2024-02-16] MEDS ORDERED: methylPREDNISolone ACETATE 40 MG/ML 1 ML VIAL ONE (07:33)
[2024-02-16] MEDS ORDERED: fentaNYL (PF) 50 MCG/ML 2 ML AMP ONE (07:33)
--- NOTE | 2024-02-16 07:59 | P.PCN ---
Date of Procedure: 02/16/24 Procedure(s) Performed: PREOPERATIVE DIAGNOSIS: 1-Lumbar Spondylosis with Facet Arthropathy without myelopathy. 2- Lumber degenerative disc disease. POSTOPERATIVE DIAGNOSIS: 1- Lumbar Spondylosis with Facet Arthropathy without myelopathy. 2- Lumber degenerative disc disease. PROCEDURES : Bilateral Radiofrequency thermocoagulation, L3 , L4 , and L5 medial branch, with fluoroscopic guidance (fluoroscopy images available in the radiology department) ( to denervate the facet joint at Bilateral L4-5 ,and L5-S1 levels ). ANESTHESIA: Sedation with Versed 2 mg and fentanyl 100 mcg, (sedation started at 07:33 ended at 07:56 ) EBL: Minimal PROCEDURE INDICATION: The patient with low back pain secondary to lumbar facet arthropathy who had more than 80% relief of her pain with previous diagnostic lumbar medial branch block with a cane and more than 90% relief after RFA done last year, and patient here today to repeat the RFA of the medial branch lumbar area at the levels mentioned above. PROCEDURE DESCRIPTION / TECHNIQUE: The patient was seen and identified in the preoperative area. Risks, benefits, complications, including but not limited to risk of infection ,bleeding , allergic reactions to the medications and no complete pain releife , and alternatives were discussed with the patient, the patient agreed to proceed with the procedure and signed the consent. IV was started. Vital signs remained stable throughout the procedure. Patient was taken to the OR and time out was completed. The patient was placed in the prone position on the procedure table. The lumber area was prepped and draped in the usual sterile fashion. . Vital signs were closely monitored during the procedure .IV sedation was used during the procedure to decrease patients anxiety. Using AP and then oblique fluoroscopy, the ``eye of the Viktor dog corresponding to the connection between the superior and transverse articular processes of right L3, L4, and L5 were identified, marked, and localized with 1% lidocaine. Subsequently, a 18 viqfw000-oi ( VENOM ) radiofrequency cannula with a 10-mm active tip was advanced guided by fluoroscopy to each of the``eyes of the Viktor dog at right L3, L4, and L5. Each site then underwent sensory testing at 50 Hz and 0 to 1 volt and motor testing at 2.5 Hz and 0 to 3 volt with local stimulation, but no radicular symptoms down the legs. Thereafter each sites underwent radiofrequency thermocoagulation at 80 degrees celsius for 90 seconds after injecting 0.5 ml of PF Ropivacaine 1ml, then after the thermocoagulation done , 1 ml of the block solution containing Depo-Medrol 20 mg and 3 ml of Ropivacaine 0.5% was injected at the right L3 , L4 , and L5 , levels after negative aspiration of CSF and blood and with no paresthesias. Cannulas were retracted while injecting lidocaine 1% until the needle is out. The same procedure was repeated at the level of Left L3, L4, and L5 levels. At the end of the procedure, the skin was cleansed and bandages were applied. COMPLICATIONS: No acute complications. DISPOSITION / PLANS: The patient was placed in a supine position and transferred to the recovery area in a stable condition for observation and was discharged from the recovery room after meeting discharge criteria. Home discharge instructions given to the patient by the staff. The patient was reexamined prior to discharge. The patient will schedule a follow up in the clinic in 2-4 weeks.
[2024-02-16 08:33] VITALS: BP 129/87; PULSE 76; RESP 18
--- NOTE | 2024-02-16 08:44 | FL ---
EXAMINATION TYPE: FL guided pain mgmt statistic DATE OF EXAM: 02/16/2024 8:01 AM COMPARISON: Pre Operative Images if available both CT/MRI or plain film CLINICAL INDICATION: Male, 68 years old with history of David Lumbar Rad Freq; TECHNIQUE: FL guided pain mgmt statistic, multiple fluoroscopic images provided for procedure. Total fluoroscopy time: 27.2 seconds Total submitted images to PACS: 8 DAP: [id number] mGym2 Gycm2 uGym2 cGycm2 or equivalent. FINDINGS: Fluoroscopic images during injection for pain management demonstrate multilevel degeneration changes throughout the spine. No evidence for fracture. No acute process identified. IMPRESSION: 1. No evidence for intraoperative complication. 2. Please see the operative/procedural note for further details. [facility], , 02/16/2024 8:41 AM
== END 2024-02-16 08:37 | disposition home or self-care (01) ==
LOC: ORPAIN 05:57
PROVIDERS: ATTEND Specialist
DX: M47.816 Spondylosis without myelopathy or radiculopathy, lumbar region (principal)
CPT/HCPCS: 64635; 64636; J2250; J3010; J2795; J1010; 99152; 99153